=== PATIENT | female | born 1940 | race Caucasian/White ===

== ENCOUNTER 2020-10-16 13:03 | Emergency (ER) | payer OTHER ==
[~2020-10-16] VITALS: Ht 157.5 cm; Wt 81.6 kg
[2020-10-16 13:14] VITALS: BP 128/72
[2020-10-16] MEDS ORDERED: ACETAMINOPHEN 325 MG TAB PO ONE (14:00)
[2020-10-16 14:27] LABS: BASOPHILS % (AUTO) 0.6 % (0.0-2.0); EOSINOPHILS % (AUTO) 0.3 % (0.0-4.0); HEMATOCRIT 43.1 % (36-48); HEMOGLOBIN 13.7 g/dL (12.0-16.0); LYMPHOCYTES % (AUTO) 20.7 % (20.5-51.1); MEAN CORPUSCULAR HEMOGLOBIN 22 pg (27-31); MEAN CORPUSCULAR HGB CONC 32 g/dL (33-37); MEAN CORPUSCULAR VOLUME 68.2 fL (80-94); MONOCYTES # (AUTO) 0.7 K/uL (0.8-1.0); NEUTROPHILS % (AUTO) 64.4 % (42.2-75.2); PLATELET COUNT (AUTO) 176 K/uL (140-450); RED BLOOD CELL COUNT(AUTO) 6.32 MIL/uL (4.20-5.40); RED CELL DISTRIBUTION WIDTH 15.7 % (11.6-13.7); WHITE BLOOD COUNT (AUTO) 4.7 K/uL (4.8-10.8)
[2020-10-16 14:44] LABS: ALBUMIN 4.3 g/dL (3.4-5.0); ANION GAP 13.6 (8-16); ASPARTATE AMINOTRANSFERASE 25 U/L (15-37); CARBON DIOXIDE 26.5 mmol/L (21-32); CHLORIDE 101 mmol/L (98-107); CREATININE 0.8 mg/dL (0.6-1.3); GLUCOSE 94 mg/dL (74-106); POTASSIUM 3.1 mmol/L (3.5-5.1); SODIUM SERUM 138 mmol/L (136-145); TOTAL BILIRUBIN 0.4 mg/dL (0.0-1.0); UREA NITROGEN, BLOOD 12 mg/dL (7-18)
[2020-10-16] MEDS ORDERED: KETOROLAC 30 MG/ML VIAL IM ONE (15:15)
[2020-10-16] MEDS ORDERED: POTASSIUM CHLORIDE 10 MEQ TABER PO ONE (16:30)
--- NOTE | 2020-10-16 17:07 | NUR ---
Patient discharged with v/s stable. Written and verbal after care instructions given and explained. Patient alert, oriented and verbalized understanding of instructions. Ambulatory with steady gait. All questions addressed prior to discharge. ID band removed, NO IV ACCESS THIS VISIT. Patient advised to follow up with PMD. Rx of NAPROSYN, TYLENOL given. Patient educated on indication of medication including possible reaction and side effects. Opportunity to ask questions provided and answered. PT IN AGREEMENT WITH PLAN OF CARE.
== END 2020-10-16 17:07 | disposition home or self-care (01) ==
LOC: MED 13:03
DX: U07.1 COVID-19 (principal); M54.9 Dorsalgia, unspecified; R51.9 Headache, unspecified; E87.6 Hypokalemia; Z98.890 Other specified postprocedural states; Z90.710 Acquired absence of both cervix and uterus
CPT/HCPCS: 36415; 71045; 80053; 85025; 87426; 96372; 99284; J1885

== ENCOUNTER 2021-03-22 11:50 | Emergency (ER) | payer OTHER ==
[~2021-03-22] VITALS: Ht 157.5 cm; Wt 90.3 kg
[2021-03-22 11:58] VITALS: BP 123/86
--- NOTE | 2021-03-22 12:04 | NUR ---
Patient ambulated to bed 8. RN evaluating the patient at bedside.
--- NOTE | 2021-03-22 12:13 | NUR ---
80 Y/O F BIB SELF FROM HOME, PATIENT PRESENTS TO ED WITH L LEG PAIN FOR 3 DAYS AFTER TRIPPING OVER RUG. PT DENIES SYNCOPE, LOC OR HEAD INJURY. DENIES N/V/D; SKIN IS PINK/WARM/DRY; AAOX4 AMBULATES SLOWLY; LUNGS CLEAR BL; HR EVEN AND REGULAR; PT DENIES ANY FEVER, CP, SOB, OR COUGH AT THIS TIME; PATIENT STATES PAIN OF 10/10 AT THIS TIME; VSS; PATIENT POSITIONED FOR COMFORT; HOB ELEVATED; BEDRAILS UP X2; BED DOWN. ER MD MADE AWARE OF PT STATUS. PMH: DENIES ALLERGY: SULFA
[2021-03-22] MEDS ORDERED: KETOROLAC 30 MG/ML VIAL IM ONE (12:30)
--- NOTE | 2021-03-22 12:46 | NUR ---
US tech at bedside for exam.
[2021-03-22] MEDS ORDERED: NAPR-54 PO (13:55)
[2021-03-22] MEDS ORDERED: LIDO1ADH47 TP (13:55)
--- NOTE | 2021-03-22 14:09 | NUR ---
Patient discharged with v/s stable. Written and verbal after care instructions given and explained. Patient alert, oriented and verbalized understanding of instructions. Ambulatory with steady gait. All questions addressed prior to discharge. ID band removed. Patient advised to follow up with PMD. Rx of NAPROXEN, LIDOCAINE given. Patient educated on indication of medication including possible reaction and side effects. Opportunity to ask questions provided and answered.
[2021-03-22 14:17] VITALS: BP 123/86
== END 2021-03-22 14:09 | disposition home or self-care (01) ==
LOC: MED 11:50
DX: S80.12XA Contusion of left lower leg, initial encounter (principal); Z88.2 Allergy status to sulfonamides; W22.8XXA Striking against or struck by other objects, initial encounter; Y93.89 Activity, other specified; Y92.89 Other specified places as the place of occurrence of the external cause; Y99.8 Other external cause status
CPT/HCPCS: 73562; 93971; 96372; 99284; J1885

== ENCOUNTER 2021-11-16 15:33 | Emergency (ER) | payer OTHER ==
[~2021-11-16] VITALS: Ht 160 cm; Wt 90.7 kg
[~2021-11-16 15:33] MED LIST: LIDO1ADH47 TP; NAPR-54 PO
[2021-11-16 15:50] VITALS: BP 114/66
[2021-11-16] MEDS ORDERED: ACETAMINOPHEN EXTRA STRENGTH 500 MG TAB PO ONE (15:55)
[2021-11-16] MEDS ORDERED: KETOROLAC 30 MG/ML VIAL IM ONE (15:55)
[2021-11-16] MEDS ORDERED: ACET-8386 PO (16:02)
[2021-11-16] MEDS ORDERED: NAPR-54 PO (16:02)
--- NOTE | 2021-11-16 16:08 | NUR ---
PT AMBULATED TO BED, STEADY GAIT
--- NOTE | 2021-11-16 16:18 | NUR ---
PT TAKEN TO XRAY VIA W/C
--- NOTE | 2021-11-16 16:29 | NUR ---
81 Y/O F BIB SELF WITH C/O RIGHT LOWER BACK PAIN RADIATING DOWN RIGHT LEG X1 WEEK, STATES SHES BEEN USING HEAT COMPRESSES AND ICE WITH NO RELIEF. STATES SHE TOOK TYLENOL WITH MINOR RELIEF. MEDHX: IRREGULAR HEART BEAT ALLERGIES: SULFA MEDS: ELIQUIS
--- NOTE | 2021-11-16 16:32 | NUR ---
PT RETURNED FROM XRAY
[2021-11-16 17:30] VITALS: BP 114/66
--- NOTE | 2021-11-16 17:30 | NUR ---
Patient discharged with v/s stable. Written and verbal after care instructions given and explained. Patient alert, oriented and verbalized understanding of instructions. Ambulatory with steady gait. All questions addressed prior to discharge. ID band removed. Patient advised to follow up with PMD. Rx of HYDROCODONE-ACETAMINOPHEN, NAPROSYN given. Patient educated on indication of medication including possible reaction and side effects. Opportunity to ask questions provided and answered.
== END 2021-11-16 17:30 | disposition home or self-care (01) ==
LOC: MED 15:33
DX: M54.31 Sciatica, right side (principal); Z88.2 Allergy status to sulfonamides; Z79.899 Other long term (current) drug therapy; Z90.49 Acquired absence of other specified parts of digestive tract
CPT/HCPCS: 72100; 96372; 99283; J1885

== ENCOUNTER 2022-01-20 11:36 | Emergency (ER) | payer OTHER ==
[~2022-01-20] VITALS: Ht 157.5 cm; Wt 88.9 kg
[~2022-01-20 11:36] MED LIST changes: +ACET-8386 PO
[2022-01-20 11:42] VITALS: BP 107/68
--- NOTE | 2022-01-20 13:30 | NUR ---
PT AMBULATED TO BED 7 WITH STEADY GAIT
--- NOTE | 2022-01-20 13:33 | NUR ---
81 Y/O FEMALE BIB SELF C/O OPEN BLISTERS BY HER LEFT THIGH AND BUTTOCK. PAIN 5/10 BURNING. STATED THAT SHE WAS UNDERGOING PHYSICAL THERAPY FOR HER BACK WHEN A NURSE INFORMED HER THAT HEAT THERAPY MAY BE A VIABLE SOLUTION FOR PAIN. INFORMED BY NURSE THAT PT SHOULD NOT SLEEP WITH HEAT THERAPY HOWEVER THEY SLEPT WITH IT. WOKE UP WITH BLISTERS MEASURING AROUND 5CM ACROSS THE BIGGEST BY THE LEFT BUTTOCK AND ANOTHER BY THE THIGH 2CM ACROSS. NO ACTIVE BLEEDING NOTED. PT STATES THEY PLACED "CREAMS, VASELINE AND WASHED IT WITH HYDROGEN PEROXIDE". ALLERGIES: SULFA PMH: [id number]
--- NOTE | 2022-01-20 13:51 | NUR ---
Female Computer Technology Instructor accompanied female patient for DR ECHEVARRIA, RASH ON BUTTOCK
[2022-01-20] MEDS ORDERED: BACITRACIN OINT 500 UNITS/GM PKT TP ONE (14:05)
[2022-01-20] MEDS ORDERED: cephALEXin 500 MG CAP PO ONE (14:05)
[2022-01-20] MEDS ORDERED: CEPH-588 PO (14:25)
--- NOTE | 2022-01-20 14:38 | NUR ---
Patient discharged with v/s stable. Written and verbal after care instructions ABOUT BLISTERS AND PRESSURE INJURY given and explained. Patient alert, oriented and verbalized understanding of instructions. Ambulatory with steady gait. All questions addressed prior to discharge. ID band removed. Patient advised to follow up with PMD. Rx of KEFLEX given. Patient educated on indication of medication including possible reaction and side effects. Opportunity to ask questions provided and answered. GIVEN ADDITIONAL DRESSINGS AT HOME
== END 2022-01-20 14:38 | disposition home or self-care (01) ==
LOC: MED 11:36
DX: S30.820A Blister (nonthermal) of lower back and pelvis, initial encounter (principal); L08.9 Local infection of the skin and subcutaneous tissue, unspecified; Z79.899 Other long term (current) drug therapy; X58.XXXA Exposure to other specified factors, initial encounter; Y93.89 Activity, other specified; Y92.89 Other specified places as the place of occurrence of the external cause; Y99.8 Other external cause status
CPT/HCPCS: 99283

== ENCOUNTER 2022-07-10 19:29 | Observation (INO) | payer OTHER ==
[~2022-07-10] VITALS: Ht 157.5 cm; Wt 87.5 kg
[~2022-07-10 19:29] MED LIST changes: +CEPH-588 PO
[2022-07-10 19:40] VITALS: BP 123/51
--- NOTE | 2022-07-10 19:40 | NUR ---
to bed ambulatory
--- NOTE | 2022-07-10 20:15 | NUR ---
LAB AT BEDSIDE.
[2022-07-10 20:21] LABS: BASOPHILS % (AUTO) 0.6 % (0.0-2.0); EOSINOPHILS # (AUTO) 0.2 K/uL (0-0.4); EOSINOPHILS % (AUTO) 3.3 % (0.0-4.0); HEMATOCRIT 39.4 % (36-48); HEMOGLOBIN 12.6 g/dL (12.0-16.0); LYMPHOCYTES # (AUTO) 1.2 K/uL (2.5-16.5); MEAN CORPUSCULAR HEMOGLOBIN 22 pg (27-31); MEAN CORPUSCULAR HGB CONC 32 g/dL (33-37); MEAN CORPUSCULAR VOLUME 69.4 fL (80-94); MONOCYTES # (AUTO) 0.6 K/uL (0.8-1.0); MONOCYTES % (AUTO) 11.5 % (1.7-9.3); NEUTROPHILS # (AUTO) 3.6 K/uL (1.8-7.7); NEUTROPHILS % (AUTO) 63.6 % (42.2-75.2); PLATELET COUNT (AUTO) 141 K/uL (140-450); RED BLOOD CELL COUNT(AUTO) 5.68 MIL/uL (4.20-5.40); RED CELL DISTRIBUTION WIDTH 15.8 % (11.6-13.7); WHITE BLOOD COUNT (AUTO) 5.6 K/uL (4.8-10.8)
[2022-07-10 20:40] LABS: ALBUMIN 3.2 g/dL (3.4-5.0); ASPARTATE AMINOTRANSFERASE 19 U/L (15-37); CARBON DIOXIDE 21.5 mmol/L (21-32); CREATININE 0.8 mg/dL (0.6-1.3); GLUCOSE 114 mg/dL (74-106); TOTAL BILIRUBIN 0.6 mg/dL (0.0-1.0); UREA NITROGEN, BLOOD 12 mg/dL (7-18)
[2022-07-10 21:33] LABS: ANION GAP 14.4 (8-16); CHLORIDE 101 mmol/L (98-107); POTASSIUM 3.9 mmol/L (3.5-5.1); SODIUM SERUM 133 mmol/L (136-145)
[2022-07-10] MEDS ORDERED: DILTIAZEM 25 MG/5 ML VIAL IVP ONE (21:35)
[2022-07-10] MEDS ORDERED: FUROSEMIDE 40 MG/4 ML VIAL IVP ONE (21:50)
--- NOTE | 2022-07-10 22:00 | NUR ---
DR. YOUNG AT BEDSIDE TO REVIEW RESULTS AND POC. AT BEDSIDE WITH PT.
--- NOTE | 2022-07-10 22:18 | NUR ---
SAH SWAB COLLECTED AND SENT TO LAB
[2022-07-10] MEDS ORDERED: METOPROLOL 25 MG TAB PO ONE (22:30)
[2022-07-10] MEDS ORDERED: LAS20I IJ (22:39)
[2022-07-10] MEDS ORDERED: APIX2.5 PO (22:39)
[2022-07-10] MEDS ORDERED: METO25TA PO (22:45)
[2022-07-10] MEDS ORDERED: ONDANSETRON 4 MG/2 ML VIAL IVP PRN (23:25)
--- NOTE | 2022-07-11 00:05 | NUR ---
REPORT CALLED TO JOE BOLAÑOS WITH FULL RETURNED VERBAL UNDERSTANDING. PT GOING TO ROOM 126B
--- NOTE | 2022-07-11 00:34 | NUR ---
ADMISSION OF A 81 YEAR OLD FEMALE PATIENT UNDER THE OF DOCTOR SMITH FOR ATRIAL FIBRILLATION WITH RAPID VENTRICULAR RESPONSE AFTER HAVING ISSUES WITH NEW HOME MEDICATION FOR THE PROBLEM SHE SAID HER PHYSICIAN ASSISTANT CERTIFIED IDENTIFIED IN A OUTPATIENT VISIT.
--- NOTE | 2022-07-11 01:00 | NUR ---
LINEN CHANGE, PATIENT UP TO RESTROOM AFTER INCONTINENCE.
[2022-07-11 04:00] VITALS: BP 96/57
[2022-07-11 06:05] LABS: BASOPHILS % (AUTO) 0.5 % (0.0-2.0); EOSINOPHILS # (AUTO) 0.2 K/uL (0-0.4); EOSINOPHILS % (AUTO) 4.7 % (0.0-4.0); LYMPHOCYTES # (AUTO) 1.3 K/uL (2.5-16.5); LYMPHOCYTES % (AUTO) 28.6 % (20.5-51.1); MEAN CORPUSCULAR HEMOGLOBIN 22 pg (27-31); MEAN CORPUSCULAR HGB CONC 32 g/dL (33-37); MEAN CORPUSCULAR VOLUME 69.9 fL (80-94); MONOCYTES # (AUTO) 0.6 K/uL (0.8-1.0); MONOCYTES % (AUTO) 13.2 % (1.7-9.3); NEUTROPHILS # (AUTO) 2.4 K/uL (1.8-7.7); PLATELET COUNT (AUTO) 132 K/uL (140-450); RED BLOOD CELL COUNT(AUTO) 5.86 MIL/uL (4.20-5.40); RED CELL DISTRIBUTION WIDTH 15.8 % (11.6-13.7); WHITE BLOOD COUNT (AUTO) 4.5 K/uL (4.8-10.8)
--- NOTE | 2022-07-11 07:25 | NUR ---
RECEIVED BEDSIDE REPORT FROM NIGHTSHIFT MIKY DIAZ FOR CONTINUITY OF CARE. PT IS A&OX4 CURRENTLY RESTING IN BED WITH NO S/S OF DISTRESS. PT IS ON ROOM AIR, WITH UNLABORED BREATHING. PTS BED IS IN LOWEST POSITION, CALL LIGHT WITHIN REACH. PT HAS 20G IV ON THE RIGHT HAND WHICH IS SALINE LOCKED. WILL CONTINUE TO MONITOR.
[2022-07-11 08:00] VITALS: BP 106/72
[2022-07-11] MEDS ORDERED: FUROSEMIDE 40 MG TAB PO SCH (13:20)
[2022-07-11] MEDS ORDERED: APIXABAN 2.5 MG TAB PO SCH (21:00)
[2022-07-11] MEDS ORDERED: METOPROLOL 25 MG TAB PO SCH (21:00)
== END 2022-07-11 16:46 | disposition home or self-care (01) ==
LOC: MED 19:29 → MMU 23:30 → MTU 07-11 05:13
PROVIDERS: ADMIT Family Medicine; ATTEND Family Medicine
DX: I50.9 Heart failure, unspecified (principal); Z20.822 Contact with and (suspected) exposure to COVID-19; J81.1 Chronic pulmonary edema; I48.20 Chronic atrial fibrillation, unspecified; E03.9 Hypothyroidism, unspecified; Z79.899 Other long term (current) drug therapy
CPT/HCPCS: 36415; 71045; 80053; 83880; 84484; 85025; 87081; 87426; 93005; 96374; 99285; G0378; J1940; Q0092

== ENCOUNTER 2023-01-13 16:24 | Emergency (ER) | payer OTHER ==
[~2023-01-13] VITALS: Ht 157.5 cm; Wt 85.3 kg
[~2023-01-13 16:24] MED LIST changes: -ACET-8386 PO; +ACET-8905 PO; +APIX2.5 PO; +LAS20I IJ; +METO25TA PO
[2023-01-13 16:28] VITALS: BP 104/62
--- NOTE | 2023-01-13 16:34 | NUR ---
PT AMBULATED TO ER BED 6
[2023-01-13] MEDS ORDERED: KETOROLAC 30 MG/ML VIAL IM ONE (16:50)
--- NOTE | 2023-01-13 17:08 | NUR ---
xray at bedside
--- NOTE | 2023-01-13 17:11 | NUR ---
82YO FEMALE PT C/O L HIP TO LEG PAIN XYESTERDAY. PAIN AT MOST WHEN BEARING WEIGHT. REPORTS ONSET AFTER MOVING FURNITURE. +NUMBING-LOSS OF SENSATION. NO VISIBLE INJURIES NOTED. PT AAOX4, HOB POSITIONED PER COMFORT. HX: AFIB ALLERGIES: SULFA
[2023-01-13] MEDS ORDERED: LID5T TP (18:11)
[2023-01-13] MEDS ORDERED: ACET-10509 PO (18:11)
[2023-01-13] MEDS ORDERED: TRAM50TA3 PO (18:11)
--- NOTE | 2023-01-13 18:22 | NUR ---
Patient discharged with v/s stable. Written and verbal after care instructionsFOR MUSCLE SPRAIN AND HIP PAIN given and explained. Patient alert, oriented and verbalized understanding of instructions. Ambulatory with steady gait. All questions addressed prior to discharge. ID band removed. Patient advised to follow up with PMD. Rx of TYLENOL XTRA STRENGTH,LIDOCAINE 5% PATCH AND TRAMADOL given. Opportunity to ask questions provided and answered.
--- NOTE | 2023-01-13 18:23 | NUR ---
The patient's care was reviewed and supervised by Jumana Cornelius RN.
== END 2023-01-13 18:22 | disposition home or self-care (01) ==
LOC: MED 16:24
DX: S76.012A Strain of muscle, fascia and tendon of left hip, initial encounter (principal); M16.12 Unilateral primary osteoarthritis, left hip; I25.10 Atherosclerotic heart disease of native coronary artery without angina pectoris; X58.XXXA Exposure to other specified factors, initial encounter; Y93.89 Activity, other specified; Y92.89 Other specified places as the place of occurrence of the external cause; Y99.8 Other external cause status
CPT/HCPCS: 73502; 96372; 99283; J1885; Q0092

== ENCOUNTER 2023-04-10 19:43 | Emergency (ER) | payer OTHER ==
[~2023-04-10] VITALS: Ht 157.5 cm; Wt 86.4 kg
[~2023-04-10 19:43] MED LIST changes: +ACET-10509 PO; +LID5T TP; +TRAM50TA3 PO
[2023-04-10 20:40] VITALS: BP 109/58; PULSE 90; RESP 17; TEMP 98; O2SAT 98
[2023-04-10 21:46] LABS: BASOPHILS # (AUTO) 0.1 K/uL (0.00-0.22); EOSINOPHILS # (AUTO) 0.2 K/uL (0-0.4); HEMATOCRIT 40.8 % (36-48); HEMOGLOBIN 12.8 g/dL (12.0-16.0); LYMPHOCYTES # (AUTO) 1.9 K/uL (2.5-16.5); MEAN CORPUSCULAR HEMOGLOBIN 22 pg (27-31); MEAN CORPUSCULAR HGB CONC 31 g/dL (33-37); MEAN CORPUSCULAR VOLUME 70.8 fL (80-94); MONOCYTES # (AUTO) 0.5 K/uL (0.8-1.0); MONOCYTES % (AUTO) 7.6 % (1.7-9.3); NEUTROPHILS # (AUTO) 4.4 K/uL (1.8-7.7); NEUTROPHILS % (AUTO) 61.4 % (42.2-75.2); PLATELET COUNT (AUTO) 222 K/uL (140-450); RED BLOOD CELL COUNT(AUTO) 5.77 MIL/uL (4.20-5.40); RED CELL DISTRIBUTION WIDTH 15.4 % (11.6-13.7); WHITE BLOOD COUNT (AUTO) 7.1 K/uL (4.8-10.8)
[2023-04-10 21:59] LABS: ANION GAP 11.9 (8-16); CALCIUM 9.3 mg/dL (8.5-10.1); CARBON DIOXIDE 30.3 mmol/L (21-32); CHLORIDE 106 mmol/L (98-107); CREATININE 1.3 mg/dL (0.6-1.3); GLUCOSE 95 mg/dL (74-106); POTASSIUM 3.2 mmol/L (3.5-5.1); SODIUM SERUM 145 mmol/L (136-145); UREA NITROGEN, BLOOD 25 mg/dL (7-18)
[2023-04-10 22:24] LABS: APPEARANCE,URINE CLEAR (CLEAR); BILIRUBIN,URINE NEGATIVE (NEGATIVE); BLOOD, URINE NEGATIVE (NEGATIVE); COLOR,URINE YELLOW (YELLOW); LEUKOCYTE ESTERASE ,URINE TRACE (NEGATIVE); NITRITE, URINE NEGATIVE (NEGATIVE); PROTEIN,URINE NEGATIVE (NEGATIVE); UGLUCOSE NEGATIVE (NEGATIVE); UROBILINOGEN,URINE 0.2 EU/dL (0.2 - 1)
[2023-04-10 22:32] LABS: BACTERIA,URINE FEW /HPF (None Seen); MUCUS,URINE 2+ /LPF (None Seen); RBC,URINE 0-5 /HPF (0-5); TRICHOMONAS,URINE None Seen /HPF (None Seen); WBC,URINE 0-5 /HPF (0-5); YEAST,URINE None Seen /HPF (None Seen)
[2023-04-10 23:10] VITALS: TEMP 98
[2023-04-10] MEDS ORDERED: SODIUM PHOS / POTASSIUM PHOS 1 PKT PDR PO SCH (23:55)
[2023-04-11 00:40] VITALS: BP 121/82; PULSE 82; RESP 15; O2SAT 99
== END 2023-04-11 00:40 | disposition home or self-care (01) ==
LOC: MED 19:43
DX: R53.1 Weakness (principal); R07.9 Chest pain, unspecified; R07.0 Pain in throat; E87.8 Other disorders of electrolyte and fluid balance, not elsewhere classified; I25.10 Atherosclerotic heart disease of native coronary artery without angina pectoris; Z88.2 Allergy status to sulfonamides; Z79.899 Other long term (current) drug therapy
CPT/HCPCS: 36415; 71045; 80048; 81001; 83880; 84484; 85025; 93005; 99285

== ENCOUNTER 2023-05-03 14:35 | Emergency (ER) | payer OTHER ==
[~2023-05-03] VITALS: Ht 165.1 cm; Wt 77.1 kg
[2023-05-03 14:55] VITALS: BP 130/86; PULSE 97; RESP 17; TEMP 97.6; O2SAT 98
[2023-05-03 15:41] LABS: BASOPHILS # (AUTO) 0.1 K/uL (0.00-0.22); BASOPHILS % (AUTO) 0.8 % (0.0-2.0); EOSINOPHILS # (AUTO) 0.1 K/uL (0-0.4); EOSINOPHILS % (AUTO) 1.9 % (0.0-4.0); HEMATOCRIT 41.1 % (36-48); HEMOGLOBIN 12.9 g/dL (12.0-16.0); LYMPHOCYTES # (AUTO) 1.5 K/uL (2.5-16.5); LYMPHOCYTES % (AUTO) 22.1 % (20.5-51.1); MEAN CORPUSCULAR HEMOGLOBIN 22 pg (27-31); MEAN CORPUSCULAR HGB CONC 32 g/dL (33-37); MEAN CORPUSCULAR VOLUME 70.9 fL (80-94); MONOCYTES # (AUTO) 0.5 K/uL (0.8-1.0); MONOCYTES % (AUTO) 6.9 % (1.7-9.3); NEUTROPHILS # (AUTO) 4.5 K/uL (1.8-7.7); NEUTROPHILS % (AUTO) 68.3 % (42.2-75.2); PLATELET COUNT (AUTO) 175 K/uL (140-450); RED BLOOD CELL COUNT(AUTO) 5.81 MIL/uL (4.20-5.40); RED CELL DISTRIBUTION WIDTH 16.1 % (11.6-13.7); WHITE BLOOD COUNT (AUTO) 6.6 K/uL (4.8-10.8)
[2023-05-03 15:57] LABS: INR 1.03 (0.8-1.2); PARTIAL THROMBOPLASTIN TIME 25.9 secs (22-35.6); PROTHROMBIN TIME 10.8 secs (10.8-13.4)
[2023-05-03 15:58] LABS: ALANINE AMINOTRANSFERASE 35 U/L (12-78); ALBUMIN 3.7 g/dL (3.4-5.0); ALKALINE PHOSPHATASE 110 U/L (50-136); ANION GAP 9.9 (8-16); ASPARTATE AMINOTRANSFERASE 29 U/L (15-37); CARBON DIOXIDE 28.5 mmol/L (21-32); CHLORIDE 105 mmol/L (98-107); GLUCOSE 128 mg/dL (74-106); POTASSIUM 3.4 mmol/L (3.5-5.1); SODIUM SERUM 140 mmol/L (136-145); TOTAL BILIRUBIN 0.8 mg/dL (0.0-1.0); TOTAL PROTEIN, SERUM 7.7 g/dL (6.4-8.2); UREA NITROGEN, BLOOD 26 mg/dL (7-18)
[2023-05-03] MEDS ORDERED: LORazepam 2 MG/ML VIAL IVP ONE (16:45)
[2023-05-03] MEDS ORDERED: MECLIZINE 25 MG TAB PO ONE (16:45)
[2023-05-03] MEDS ORDERED: ONDANSETRON 4 MG/2 ML VIAL IVP ONE (16:45)
[2023-05-03] MEDS ORDERED: MECL-303 PO (18:41)
[2023-05-03] MEDS ORDERED: METO5SOL19 PO (18:41)
[2023-05-03] MEDS ORDERED: NACL 0.9% 1,000 ML IV ONE (18:50)
[2023-05-03 20:35] VITALS: BP 104/67; PULSE 81; RESP 19; TEMP 98; O2SAT 98
== END 2023-05-03 20:35 | disposition home or self-care (01) ==
LOC: MED 14:35
DX: H81.12 Benign paroxysmal vertigo, left ear (principal); E87.6 Hypokalemia; E03.9 Hypothyroidism, unspecified; I25.10 Atherosclerotic heart disease of native coronary artery without angina pectoris; Z79.899 Other long term (current) drug therapy
CPT/HCPCS: 36415; 70450; 70496; 70498; 71045; 80053; 83880; 84484; 85025; 85610; 85730; 93005; 96361; 96374; 96375; 99285; J2060; J2405; J8597; Q0092; Q9967

== ENCOUNTER 2023-07-15 13:54 | Emergency (ER) | payer OTHER ==
[~2023-07-15] VITALS: Ht 157.5 cm; Wt 81.6 kg
[~2023-07-15 13:54] MED LIST changes: +MECL-303 PO; +METO5SOL19 PO
[2023-07-15 14:04] VITALS: BP 117/68; PULSE 96; RESP 18; TEMP 97.3; O2SAT 97
[2023-07-15 15:26] LABS: APPEARANCE,URINE HAZY (CLEAR); BILIRUBIN,URINE NEGATIVE (NEGATIVE); BLOOD, URINE TRACE-I (NEGATIVE); COLOR,URINE YELLOW (YELLOW); LEUKOCYTE ESTERASE ,URINE 2+ (NEGATIVE); NITRITE, URINE NEGATIVE (NEGATIVE); PROTEIN,URINE NEGATIVE (NEGATIVE); UGLUCOSE NEGATIVE (NEGATIVE); UROBILINOGEN,URINE 0.2 EU/dL (0.2 - 1)
[2023-07-15 15:36] LABS: BACTERIA,URINE 1+ /HPF (None Seen); MUCUS,URINE None Seen /LPF (None Seen); SQUAMOUS EPITHELIAL CELL,UR 0-3 (FEW) /LPF (0-3 (FEW)); WBC,URINE 20-60 /HPF (0-5); YEAST,URINE None Seen /HPF (None Seen)
[2023-07-15 15:39] LABS: FLU A ANTIGEN negative (NEGATIVE); FLU B ANTIGEN negative (NEGATIVE)
[2023-07-15] MEDS ORDERED: CEPH250C16 PO (16:04)
[2023-07-15 16:25] VITALS: BP 117/68; PULSE 96; RESP 18; TEMP 97.3; O2SAT 97
== END 2023-07-15 16:25 | disposition home or self-care (01) ==
LOC: MED 13:54
DX: J06.9 Acute upper respiratory infection, unspecified (principal); N39.0 Urinary tract infection, site not specified; Z20.822 Contact with and (suspected) exposure to COVID-19; I48.91 Unspecified atrial fibrillation; E03.9 Hypothyroidism, unspecified; Z79.899 Other long term (current) drug therapy; Z79.2 Long term (current) use of antibiotics; Z79.01 Long term (current) use of anticoagulants; Z88.2 Allergy status to sulfonamides
CPT/HCPCS: 71045; 81001; 87086; 87426; 87804; 99284; Q0092; 93005